=== PATIENT | female | born 1985 | race Caucasian/White ===

== ENCOUNTER 2022-10-17 20:31 | Emergency (ER) | payer BC ==
[2022-10-17 21:09] VITALS: BP 130/93; PULSE 94; RESP 19; TEMP 99.5; BMI 31.8
[2022-10-17] MEDS ORDERED: CEPHALEXIN MONOHYDRATE 500 MG CAPSULE (UD) PO ONE ×2 (21:35→21:52)
[2022-10-17] MEDS ORDERED: DICLOXACILLIN SODIUM 250 MG CAPSULE PO ONE (21:36)
[2022-10-17] MEDS ORDERED: CEPHALEXIN MONOHYDRATE 500 MG CAPSULE (UD) ONE (21:56)
== END 2022-10-17 22:00 | disposition home or self-care (01) ==
LOC: FER 20:31
DX: N61.0 Mastitis without abscess (principal)
CPT/HCPCS: 99283-25